=== PATIENT | male | born 1935 | race Caucasian/White ===

== ENCOUNTER 2017-06-06 09:20 | Inpatient (IN) | payer OTHER, MEDICAID ==
[~2017-06-06] VITALS: Ht 177.8 cm; Wt 80.7 kg
[2017-06-06] VITALS (15 sets, daily range): BP systolic 101–126
--- NOTE | 2017-06-06 09:20 | NUR ---
Placed in room 02. Placed on surveillance monitor, blood pressure machine and pulse oximeter. To gown for exam. Side rails up. Report given to FELICITAS Campos.
--- NOTE | 2017-06-06 09:29 | NUR ---
Received Pt in bed 2. Pt was brought in by Pt's neighbor. Pt's neighbor stated Pt's appears fatigue yesterday and thought Pt should come into the ER to get evaluated. Pt denies SOB, pain, blurred vision, or discomfort. Pt able to follow simple commands and verbalized needs. Speech clear. Pt able to recall event that occurred yesterday. Pt breathing even and unlabored. O2 sat 97% room air. Lung sounds auscultated. Lung sounds clear throughout all quadrant. Pt able to move BUE and BLE equally, BUE and BLE muscle strength 5/5, AROM noted. Pt ambulated to bed with steady gait. Addendum: 06/06/17 at 0940 by JIE Pt's neighbor at bedside. Pt's neighbor at bedside providing Hx. Pt neighbor stated Pt appeared ALOC during at [facility]aker in confession. Pt unable to recall event during the time of incident. Pt was noted by friends washing his hands and forgetting to turn off sink faucet. Pt s/s lasted 30 mins.
--- NOTE | 2017-06-06 09:37 | NUR ---
Dr. Chinchilla at the bedside evaluating Pt. Currently awaiting new orders.
[2017-06-06 10:12] LABS: BASOPHILS # (AUTO) 0.1 K/uL (0.0-0.2); EOSINOPHILS # (AUTO) 0.1 K/uL (0.0-0.4); EOSINOPHILS % (AUTO) 0.8 % (0.0-4.0); MEAN CORPUSCULAR HGB CONC 33 % (32-36)
--- NOTE | 2017-06-06 10:15 | NUR ---
Dr. Chinchilla at the bedside discussin plan of care. Currently awaiting new orders.
[2017-06-06 10:18] LABS: BASOPHILS % (AUTO) 1.1 % (0.0-2.0); HEMATOCRIT 37.3 % (36-54); HEMOGLOBIN 12.4 g/dL (14.0-18.0); LYMPHOCYTES # (AUTO) 0.7 K/uL (1.0-5.5); LYMPHOCYTES % (AUTO) 10.5 % (20.5-51.5); MEAN CORPUSCULAR HEMOGLOBIN 29 pg (27-31); MEAN CORPUSCULAR VOLUME 88 fL (79.0-98.0); MONOCYTES # (AUTO) 0.5 K/uL (0.0-1.0); MONOCYTES % (AUTO) 8.6 % (1.7-9.3); NEUTROPHILS # (AUTO) 4.9 K/uL (1.8-7.7); PLATELET COUNT (AUTO) 197 K/uL (130-430); RED BLOOD CELL COUNT(AUTO) 4.22 MIL/uL (4.2-6.2); RED CELL DISTRIBUTION WIDTH 13.3 % (9.0-15.0); WHITE BLOOD COUNT (AUTO) 6.3 K/uL (4.8-10.8)
[2017-06-06 10:30] LABS: ANION GAP 8 (5-15); CALCIUM 8.8 mg/dL (8.4-11.0); CHLORIDE 107 mmol/L (98-107); CREATININE 0.97 mg/dL (0.55-1.30); GLUCOSE 122 mg/dL (70-99); SODIUM SERUM 140 mmol/L (136-145); UREA NITROGEN, BLOOD 21 mg/dL (8-21)
[2017-06-06 10:34] LABS: BILIRUBIN,URINE NEGATIVE (NEGATIVE); BLOOD, URINE NEGATIVE (NEGATIVE); CLARITY/URINE CLEAR (CLEAR); COLOR,URINE YELLOW (YELLOW); GLUCOSE,URINE NEGATIVE (NEGATIVE); KETONES,URINE NEGATIVE (NEGATIVE); LEUKOCYTE ESTERASE ,URINE NEGATIVE (NEGATIVE); NITRITE, URINE NEGATIVE (NEGATIVE); PROTEIN URINE NEGATIVE (NEGATIVE)
[2017-06-06 10:35] LABS: ALANINE AMINOTRANSFERASE 28 U/L (12-78); ALBUMIN 3.5 g/dL (3.4-4.8); ASPARTATE AMINOTRANSFERASE 26 U/L (10-37); TOTAL BILIRUBIN 0.3 mg/dL (0.0-1.0)
[2017-06-06 10:39] LABS: ALCOHOL, BLOOD < 3 mg/dL (<10)
--- NOTE | 2017-06-06 11:40 | NUR ---
Pt transported to ICU bed 4 via rney.
[2017-06-06] MEDS ORDERED: ONDANSETRON HCL 4 MG/2 ML VIAL IVP PRN (11:45)
[2017-06-06] MEDS ORDERED: ACETAMINOPHEN 325 MG TABLET PO PRN (11:45)
[2017-06-06] MEDS ORDERED: DEXAMETHASONE SOD PHOSPHATE 10 MG/ML VIAL IVP ONE (11:45)
[2017-06-06] MEDS ORDERED: levETIRAcetam 500 MG in NS 100 ML IV ONE (11:45)
[2017-06-06] MEDS: D5LR 1,000 ML IV SCH (11:45)
--- NOTE | 2017-06-06 11:45 | NUR ---
RN NOTES: ER ADMISSION ADMITTED FROM ER FOR ALOC, PATIENT IS AWAKE AND ALERT, NOT IN ACUTE DISTRESS, SINUS RHYTHM ON THE MONITOR, SPO2 99% ON ROOM AIR. DENIES ANY FORM OF DISCOMFORT. ABLE TO MOVE ALL EXTREMS WITHOUT DIFFICULTY. PATIENT KEPT COMFORTABLE.
--- NOTE | 2017-06-06 11:50 | NUR ---
Placed Pt in ICU bed 4. Bedside report given to Sophie POLK.
--- NOTE | 2017-06-06 11:50 | NUR ---
MD ROUNDS: DR. AMARJIT OCASIO HERE TO SEE PATIENT, WITH ORDERS CARRIED OUT. SPOKE TO PATIENT RE: PLAN OF CARE.
--- NOTE | 2017-06-06 11:50 | NUR ---
Called Dr. Serrato with a consult, spoke with Rose from doctors office
[2017-06-06] MEDS ORDERED: LORazepam 2 MG/ML VIAL IVP PRN (12:00)
--- NOTE | 2017-06-06 12:15 | NUR ---
Called Dr. Saldaña with a consult, spoke with Shelby from the exchange
--- NOTE | 2017-06-06 13:08 | NUR ---
Care is assumed. A/Ox4. No neuro deficits noted at this time. SR on monitor, 60s-70s bpm. Cranial nerves checked. On room air, lung sounds clear bilat, abdominal sounds are audible on all quadrants. Bilat extremities are equal in strength. Patient is ambulatory. Pedal and radial pulses are detected. Call light in place, bed locked at the lowest position, instructed patient to use call light for needs. Will continue to monitor.
--- NOTE | 2017-06-06 15:25 | NUR ---
Patient's friends are at bedside. Current POC and patient's current situation is explained; they verbalized understanding.
--- NOTE | 2017-06-06 17:25 | NUR ---
patient to potty for urination. Patient tolerated without distress.
[2017-06-06] MEDS: DEXAMETHASONE SOD PHOSPHATE 4 MG/ML VIAL IVP SCH ×2 (17:56→23:14)
--- NOTE | 2017-06-06 18:35 | NUR ---
Patient completes dinner without distress. All needs met, will delegate to next shift.
--- NOTE | 2017-06-06 19:15 | NUR ---
Initial Notes Received patient resting in bed, awake, alert, oriented. Patient denies any acute distress or pain at this time. Vital signs stable. Breathing is even and unlabored on room air. IV site patent/clean/dry. Needs addressed. Educated patient on use of call light for assistance and fall precautions, patient verbalized understanding. Call light in hand, fall precautions in place. Will continue to monitor for changes and safety.
[2017-06-06] MEDS: levETIRAcetam 500 MG in NS 100 ML IV SCH (20:33)
--- NOTE | 2017-06-06 21:30 | NUR ---
Rounds Dr. Serrato on unit to see patient.
--- NOTE | 2017-06-06 21:45 | NUR ---
Visitors Patient receiving visitors. Patient denies any acute distress or pain at this time. Breathing is even and unlabored. IV site patent/clean/dry.
[2017-06-07] VITALS (20 sets, daily range): BP systolic 98–132
[2017-06-07 01:13] LABS: BILIRUBIN,URINE NEGATIVE (NEGATIVE); BLOOD, URINE TRACE (NEGATIVE); CLARITY/URINE CLEAR (CLEAR); COLOR,URINE YELLOW (YELLOW); GLUCOSE,URINE NEGATIVE (NEGATIVE); KETONES,URINE NEGATIVE (NEGATIVE); LEUKOCYTE ESTERASE ,URINE NEGATIVE (NEGATIVE); NITRITE, URINE NEGATIVE (NEGATIVE); PH,URINE 7.5 (5.0-8.0); PROTEIN URINE NEGATIVE (NEGATIVE); UROBILINOGEN,URINE 0.2 (0.2-1.0)
[2017-06-07 01:15] LABS: BACTERIA,URINE RARE /HPF (None Seen); MUCUS,URINE None Seen /LPF (None Seen); RBC,URINE 0-3 /HPF (0-3); WBC,URINE 0-3 /HPF (0-3)
--- NOTE | 2017-06-07 02:17 | NUR ---
Hygiene care and CHG bath Hygiene care provided with CHG bath.
--- NOTE | 2017-06-07 04:00 | NUR ---
Rounds Patient resting in bed with eyes closed, easily aroused. Patient denies any acute distress or pain at this time. Breathing is even and unlabored. IV site patent/clean/dry. CHG bath given. Needs addressed. Call light in hand, will continue to monitor.
[2017-06-07] MEDS: DEXAMETHASONE SOD PHOSPHATE 4 MG/ML VIAL IVP SCH ×3 (05:19→18:13)
[2017-06-07 06:28] LABS: BASOPHILS % (AUTO) 0.1 % (0.0-2.0); HEMOGLOBIN 13.9 g/dL (14.0-18.0); LYMPHOCYTES # (AUTO) 0.4 K/uL (1.0-5.5); LYMPHOCYTES % (AUTO) 7.4 % (20.5-51.5); MEAN CORPUSCULAR HEMOGLOBIN 30 pg (27-31); MEAN CORPUSCULAR HGB CONC 33 % (32-36); MEAN CORPUSCULAR VOLUME 90 fL (79.0-98.0); MONOCYTES # (AUTO) 0.1 K/uL (0.0-1.0); MONOCYTES % (AUTO) 1.3 % (1.7-9.3); NEUTROPHILS # (AUTO) 5.1 K/uL (1.8-7.7); NEUTROPHILS % (AUTO) 91.2 % (40.0-70.0); PLATELET COUNT (AUTO) 193 K/uL (130-430); RED BLOOD CELL COUNT(AUTO) 4.67 MIL/uL (4.2-6.2)
--- NOTE | 2017-06-07 06:47 | NUR ---
Closing Notes Patient resting in bed with eyes closed, easily aroused, no change in mentation. Patient denies any acute distress or pain at this time. Breathing is even and unlabored. IV site patent/clean/dry, no S/S infection/infiltration noted. Needs addressed throughout shift. Call light in hand, fall precautions in place. Will continue to monitor for changes and safety, and endorse all patient care/needs to oncoming nurse.
[2017-06-07 06:53] LABS: ALANINE AMINOTRANSFERASE 36 U/L (12-78); ALBUMIN 3.4 g/dL (3.4-4.8); ANION GAP 7 (5-15); ASPARTATE AMINOTRANSFERASE 26 U/L (10-37); CALCIUM 8.9 mg/dL (8.4-11.0); CHLORIDE 105 mmol/L (98-107); CHOLESTEROL 210 mg/dL (<200); CREATININE 0.95 mg/dL (0.55-1.30); GLUCOSE 149 mg/dL (70-99); HDL CHOLESTEROL 50 mg/dL (>45); LDL CHOLESTEROL 155 mg/dL (<100); POTASSIUM 3.8 mmol/L (3.5-5.1); SODIUM SERUM 141 mmol/L (136-145); TOTAL BILIRUBIN 0.4 mg/dL (0.0-1.0); TRIGLYCERIDES 31 mg/dL (30-150); UREA NITROGEN, BLOOD 16 mg/dL (8-21)
[2017-06-07 06:56] LABS: WHITE BLOOD COUNT (AUTO) 5.6 K/uL (4.8-10.8)
--- NOTE | 2017-06-07 07:30 | NUR ---
AM Assessment Received Pt awake, alert, orientated x1 to self. Pt has episode of forgetfulness and confusion. Reorientated Pt to place, time, and situation. Informed Pt to recall three items (apple, ball, & car). Pt unable to recall three items after 5 mins. Speech clear. No facial drooping noted. Pt able to move BUE and BLE equally, BUE & BLE muscle strength 5/5. Pt breathing even and unlabored. Lung sounds auscultated, lung sounds clear throughout all quadrant. Abd. auscultated. Bowel sounds noted throughout all quadrant. Abd soft and non distended. IV access noted right FA 20G patent with blood return. No s/s of infiltration or inflammation noted. Seizure precaution in place. Bilateral upper side rails up and padded. Assess done, plan of care discussed with Pt, call light within easy reach, bed at lowest position, will continue to monitor.
[2017-06-07 07:31] LABS: FREE T4 (FREE THYROXINE) 0.8 ng/dL (0.6-1.6)
[2017-06-07 08:30] LABS: ERYTHROCYTE SEDIMENTATION RATE 7 MM/HR (0-15)
--- NOTE | 2017-06-07 09:00 | NUR ---
Pt transported to MRI via wheelchair.
[2017-06-07] MEDS ORDERED: GADOPENTETATE DIMEGLUMINE 15 ML VIAL IV ONE (09:10)
--- NOTE | 2017-06-07 10:00 | NUR ---
Pt returned from MRI via wheelchair. Pt tolerated procedure. Pt is awake, alert, orientated to self. Pt unable to recall three items after 5 mins. Reorientated Pt to the three items. Pt continues to experience episode of forgetfulness. Speech clear. No facial drooping. Informed Pt to push the call light if Pt needs assistance with anything. Pt verbalized understanding. Call light within easy reach, bed at lowest position, will continue to monitor.
[2017-06-07 10:09] LABS: % FREE PSA 25.5 % (.); CEA 2.6 ng/mL (0.0-4.7); FREE PSA 0.28 ng/mL; PROSTATE SPECIFIC AG TOTAL 1.1 ng/mL (0.0-4.0)
[2017-06-07] MEDS: levETIRAcetam 500 MG in NS 100 ML IV SCH ×2 (10:34→21:42)
[2017-06-07] MEDS: D5LR 1,000 ML IV SCH (10:35)
--- NOTE | 2017-06-07 12:00 | NUR ---
Pt awake and eating lunch. Pt tolerating meals. Pt is awake, alert, orientated x1 to self. Pt has episode of forgetfulness. Pt unable to recall 3 items (apple, ball, & car) after 5 mins. Reorientated Pt to place, time, situation, and three items. Pt's speech is clear. Pt able to move BUE and BLE equally. Pt stated he did not need anything at the moment. Informed Pt to push the call light if Pt needs assistance with anything. Pt verbalized understanding. Call light within easy reach, bed at lowest position, upper side rails up and padded, will continue to monitor.
--- NOTE | 2017-06-07 14:00 | NUR ---
Dr. Yeung at the bedside discussing plan of care. Currently awaiting new orders.
--- NOTE | 2017-06-07 16:15 | NUR ---
RECEIVED PT FROM ICU PT PRESENTED WITH A RIGHT FRONTAL INTRACRANIAL HEMORRHAGE - DR. HUTCHISON ASSESSED PT AND DETERMINED SURGERY WAS NOT NEEDED. PT IS STABLE ON ROOM AIR WITH NO COMPLAINT OF DISCOMFORT. HE IS A/O X 4 BUT IS EASILY CONFUSED AND NEEDS TO BE FREQUENTLY REORIENTED. BREATHING UNLABORED. IV IS PATENT, DRESSING DRY AND INTACT. PT IS A FALL RISK.
--- NOTE | 2017-06-07 16:19 | NUR ---
Pt transferred to [facility]. Bedside report given to [facility] RN. Informed Pt to push the call light if Pt needs assistance with anything Pt verbalized understanding. Call light within easy reach, bed at lowest position, will continue to monitor.
--- NOTE | 2017-06-07 18:43 | NUR ---
RN CLOSING NOTE PT IS SITTING UP IN BED WITH NO COMPLAINT OF DISCOMFORT. NEURO CHECK PERFORMED, PT A.O X 4 BUT IS EASILY CONFUSED: REORIENTATION TO PLACE AND TIME SUCCESSFUL. HIS IV IS PATENT, DRESSING DRY AND INTACT. FALL AND SEIZURE PRECAUTIONS ARE IN PLACE AND HE IS LOCATED IN A ROOM CLOSE TO THE NURSING STATION.
--- NOTE | 2017-06-07 19:05 | NUR ---
Initial Notes Received patient resting with eyes close in bed. Patient is awake alert oriented x1, non verbal. No s/s of any distress noted. Patient is on trach with T bar noted on 100% o2 sat. G tube noted no residual and flushing well. Patient on bed rest. Call light in reach, will cont to monitor. Addendum: 06/07/17 at 1957 by Manav Alamo RN CORRECTION: DISREGARD NOTES WRONG PATIENT
--- NOTE | 2017-06-07 19:05 | NUR ---
Initial Notes Received patient resting in bed. Patient is awake alert oriented x4. No s/s of any distress noted. All extremities are strong needs assistance to bedside commode. Call light in reach, will cont to monitor.
--- NOTE | 2017-06-07 21:05 | NUR ---
Rounds Patient is awake watching tv at this time. No s/s of any distress noted. Call light in reach, will cont to monitor.
--- NOTE | 2017-06-07 23:05 | NUR ---
Rounds Assisted patient to b/r and safely back to bed . No s/s of any distress noted. Call light in reach, will cont to monitor.
[2017-06-08] MEDS: DEXAMETHASONE SOD PHOSPHATE 4 MG/ML VIAL IVP SCH ×2 (00:09→05:58)
--- NOTE | 2017-06-08 01:05 | NUR ---
Rounds Patient is resting at this time. No s/s of any distress noted. Call light in reach, will cont to monitor.
--- NOTE | 2017-06-08 03:10 | NUR ---
ROUNDS PT IN BED WITH EYES OPEN. DENIES ANY NEEDS AT THIS TIME. FALL PRECAUTIONS IN PLACE. CALL LIGHT WITHIN REACH. CONTINUE TO MONITOR.
[2017-06-08 03:37] VITALS: BP_SYST 124
--- NOTE | 2017-06-08 05:09 | NUR ---
rounds pt in bed sleeping comfortably. safety precautions in place. Call light within reach. Will continue to monitor
--- NOTE | 2017-06-08 06:48 | NUR ---
closing note pt slept on and off this shift. Pt was at times confused in the middle of the night. Pt ambulated to the bathroom. pt tolerated all treatments well. bed rail padded, pt tolerated treatments without any adverse effect. Safety measures upheld. Bed at lowest posiiton. Will pas report to the next shift.
[2017-06-08 08:00] VITALS: BP_SYST 131
--- NOTE | 2017-06-08 08:00 | NUR ---
INITIAL NOTE PT LAYING IN BED, EASY TO AROUSE, ALERT AND ORIENTED X1, CONFUSED, ABLE TO MAKE NEEDS KNOWN, NO S/S OF ACUTE DISTRESS OR PAIN, VSS, IV FLUIDS INFUSING TO RFA AT ORDERED RATE, NO S/S OF INFILTRATION NOTED, SCDS IN PLACE, PLAN OF CARE DISCUSSED, PT VERBALIZED UNDERSTANDING, PT REORIENTED TO ROOM, USE OF CALL LIGHT AND BED ALARM, CALL LIGHT PLACED WITHIN REACH, BED IN LOW POSITION AND LOCKED, SAFETY MEASURES IN PLACE, WILL MONITOR PT CLOSELY
--- NOTE | 2017-06-08 09:10 | NUR ---
Nutrition Update Jamal Scale 18 noted. Pt admitted for intracranial hemorrhage. Diet: mechanical soft BMI: 25.5 kg/m2 RD to follow per nutrition care standards.
--- NOTE | 2017-06-08 09:40 | NUR ---
DR OCASIO MAKING ROUNDS, UPDATED ON PT STATUS, CONSULT TO DR HDEZ CALLED AGAIN , AWAITING MD TO SEE PATIENT, DC PLANNING STARTED FOR SNF PLACEMENT
[2017-06-08] MEDS: levETIRAcetam 500 MG in NS 100 ML IV SCH ×2 (09:43→22:20)
--- NOTE | 2017-06-08 11:07 | NUR ---
MADE A F/U CALL TO THE NEUROLOGY CONSULT, DR SELBY, RE: NISHI. HAS NOT SEEN PT YET. SPOKE TO BARBARA
[2017-06-08] MEDS: PANTOPRAZOLE GRANULES PACKET 40 MG GT SCH (11:15)
--- NOTE | 2017-06-08 11:36 | NUR ---
DC PLANNING: SPOKE W/ DR. OCASIO REGARDING THE D CPLAN FOR THE PT. PT LIVES ALONE, NEEDS PT BEFORE GOING BACK TO HIS HOUSE. RECOMMENDED [facility] . CALLED AND FAXED TO [facility] ([facility]) TEL# [phone]; FAX# [phone]. TO F/U. Addendum: 06/08/17 at 1231 by Jodie Lucas RN [facility] FROM [facility] CALLED ACCEPTING THE PT , GAVE ROOM 35 A, POSSIBLE DISCHARGE TOMORROW. PLS GIVE REPORT TO FELICITAS TEL# [phone].
[2017-06-08] MEDS: D5LR 1,000 ML IV SCH (11:45)
[2017-06-08 12:00] VITALS: BP_SYST 109
[2017-06-08] MEDS ORDERED: PANTOPRAZOLE SODIUM 40 MG TAB PO ONE (12:00)
--- NOTE | 2017-06-08 12:00 | NUR ---
ROUNDS PT SITTING UP IN BED, FRIENDS AT BEDSIDE, PT ALERT, IN [employer], CONFUSED, PT STATES HE IS IN HIS HOUSE, IN HIS LIVING ROOM, PT REMINDED THAT HE IS IN HOSPITAL, [facility]ALLY [facility], PT WILL VERBALIZE UNDERSTANDING THEM STATE HIS BEDROOM IS ON THE OTHER SIDE OF THIS WALL, SAFETY MEASURES IN PLACE, CALL LIGHT WITH IN REACH, BED ALARM ON, WILL CONTINUE TO MONITOR PT CLOSELY
[2017-06-08] MEDS: DEXAMETHASONE 1 MG TABLET (DECADRON) PO SCH ×3 (12:07→22:20)
[2017-06-08 12:08] LABS: FOLATE (FOLIC ACID) 12.6 ng/mL (>3.0)
--- NOTE | 2017-06-08 14:00 | NUR ---
DR RODRIGUEZ CAME FOR NEURO CONSULT, PT ASSESSED, NO NEW ORDER RECEIVED, WILL CONTINUE TO MONITOR PATIENT CLOSELY
--- NOTE | 2017-06-08 16:00 | NUR ---
ROUNDS PT SITTING UP IN BED, FRIENDS AT BEDSIDE, PT ABLE TO TALK ABOUT PAST AND WORK, BUT UNABLE TO ORIENT WHERE HE IS AT AND WHAT TIME IT IS, PT DENIES ANY NEEDS AT THIS TIME, SAFETY MEASURES IN PLACE, CALL LIGHT WITHIN REACH, WILL CONTINUE TO MONITOR
[2017-06-08 16:12] VITALS: BP_SYST 121
--- NOTE | 2017-06-08 17:30 | NUR ---
ROUNDS MED PASS AND IV FLUID CHANGED, PT SITTING UP IN BED, CONFUSED, DENIES ANY NEEDS AT THIS TIME, SAFETY MEASURES IN PLACE, CALL LIGHT WITHIN REACH, WILL CONTINUE TO MONITOR
--- NOTE | 2017-06-08 18:54 | NUR ---
CLOSING NOTE PATIENT LAYING IN BED, AWAKE, ALERT, CONFUSED, NO S/S OF ACUTE DISTRESS OR PAIN, IV FLUIDS INFUSING TO RFA AT ORDERED RATE, SITE PATENT AND INTACT, ALL NEEDS ATTENDED TO THROUGHOUT SHIFT, SAFETY MEASURES MAINTAINED, CALL LIGHT WITHIN REACH, BED ALARM ON, WILL GIVE REPORT TO FOLLOWING SHIFT
--- NOTE | 2017-06-08 19:20 | NUR ---
OPENING NOTES RECEIVED REPORT AT BEDSIDE FROM DAYSHIFT NURSE. PATIENT IS AWAKE AND ALERT, BUT CONFUSED. RESPIRATIONS EVEN AND UNLABORED. IV PATENT AND INFUSING WITH NO SIGNS OF INFILTRATION PRESENT. NO S/S OF ACUTE DISTRESS NOTED. BED IN LOWEST POSITION, BED ALARM ON, CALL LIGHT WITHIN REACH.
[2017-06-08 20:26] VITALS: BP_SYST 112
--- NOTE | 2017-06-08 22:26 | NUR ---
MEDS Routine meds given as ordered, tolerated well; call light in reach, bed in low position, denies any pain at this time.
--- NOTE | 2017-06-09 00:27 | NUR ---
round in bed sleeping at this time, with no distress; call light w/in reach, bed in low position, bed alarm on.
[2017-06-09 01:45] VITALS: BP_SYST 116
--- NOTE | 2017-06-09 02:08 | NUR ---
Round. Sleeping in bed at this time,with no distress; iv fluid infusing via Rt arm/ patent; call light in reach,bed in low position,bed alarm on.
[2017-06-09 03:49] VITALS: BP_SYST 118
--- NOTE | 2017-06-09 04:20 | NUR ---
Round. In bed sleeping at this time, no distress noted;call light in reach,bed in low position, bed alarm on.
--- NOTE | 2017-06-09 07:00 | NUR ---
Closing notes. Condition stable, slept all night,tolerated Meds well;tried to get out of bed without assist;now,resting in bed with no distress, call light in reach,bed in low position,bed alarm on;endorsed to morning nurse to continue care.
--- NOTE | 2017-06-09 08:02 | NUR ---
INITIAL NOTE PATIENT IS AWAKE, ALERT, ABLE TO FOLLOW DIRECTIONS AND HAVE CONVERSATION BUT CONFUSED, SITTING UP HAVING BREAKFAST, NO S/S OF ACUTE DISTRESS OR COMPLAINT OF PAIN, VSS, IV FLUIDS INFUSING TO RFA AT ORDERED RATE, NO S/S OF INFILTRATION NOTED, SAFETY MEASURES IN PLACE, CALL LIGHT WITHIN REACH, WILL FOLLOW UP
[2017-06-09 08:11] VITALS: BP_SYST 122
[2017-06-09] MEDS: PANTOPRAZOLE GRANULES PACKET 40 MG GT SCH (08:35)
[2017-06-09] MEDS: DEXAMETHASONE 1 MG TABLET (DECADRON) PO SCH (08:36)
[2017-06-09] MEDS: levETIRAcetam 500 MG in NS 100 ML IV SCH (08:36)
--- NOTE | 2017-06-09 10:07 | NUR ---
ROUNDS PT SITTING UP IN BED, FRIEND AT BEDSIDE, STABLE, NO S/S OF ACUTE DISTRESS OR PAIN, PT DENIES ANY NEEDS AT THIS TIME, SAFETY MEASURES IN PLACE, CALL LIGHT WITHIN REACH, WILL CONTINUE TO MONITOR PT
--- NOTE | 2017-06-09 10:15 | NUR ---
ROXANE DC PLANNING: TRANSFER TO [facility] SNF SPOKE WITH DR. OCASIO THIS A.M. TO SPEAK WITH OTHER PRIESTS AT [facility] ABOUT WHETHER THERE WOULD BE ANYONE AVAILABLE AT [facility] FOR OVERSIGHT OF Pt OVER THE NEXT 7-10 DAYS DUE TO RECENT DOCUMENTED ICH WITHOUT SURGERY INDICATED PER DR. HUTCHISON; BUT, Pt IS ON NEW MEDS, DECADRON FOR BRAIN EDEMA AND IV KEPPRA 500 MG Q 12 HOURS FOR SEIZURE COVERAGE ORDERED THRU 08/07/[address] OCASIO AT THIS TIME. DECADRON 2 MG WAS WEANED TODAY FROM 4 TIMES DAILY TO 3 TIMES DAILY. FATHER NICOLETTE GREENWOOD STATED THERE ARE NOT ENOUGH STAFF AT FACILITY TO OVERSEE NEW RECOVERY FROM ICH; AND, TRANSFER TO SNF WAS PREFERRED FOR Pt SAFETY; AND, FOR Pt TO TRANSFER VIA AMBULANCE TO SNF FACILITY. ROXANE FAXED INQUIRIES TO [facility] AND [facility] FOR BED REQUEST THESE FACILITIES ARE CLOSER TO [facility]IDENCE OF Pt. NO RESPONSE BACK FROM [facility]; BUT, CM OBTAINED ACCEPTANCE AND BED # 303-A FOR Pt TO ADMIT TO [facility]. BLS AMBULANCE TRANSPORT ARRANGED PER [facility] FOR 1800 PICK-UP AFTER Pt HAS DINNER AT HOSPITAL. PACKET PREPARED AND PROVIDED TO NURSING STATION. RN/ELIUD UPDATED RE: DC POC. ROXANE ALSO SPOKE WITH Pt's SISTER/JAEL GAFFNEY: IN [place] WHO WAS A PRIOR CLASSIFIER; AND, WAS REQUESTING INFO ABOUT NEW MEDICATIONS RECOMMENDED FOR Pt. ROXANE ALSO NOTIFIED SISTER/JAEL GAFFNEY THAT Pt WILL BE TRANSFERRED TO [facility] SNF VERY NEAR TO [facility]; WENT BY AMBULANCE; AND, PROVIDED HER WITH CONTACT # FOR [facility]: [phone]; FAX: [phone].
--- NOTE | 2017-06-09 11:00 | NUR ---
DR OCASIO SPOKE WITH PATIENTS ROOMMATES FOR DISCHARGE PLANNING, CAME TO AGREEMENT FOR PATIENT TO TRANSFER TO SNF FOR PHYSICAL THERAPY AND CONTINUED MEDICAL TREATMENT, CASE MANAGEMENT MADE AWARE, PER CASE MANAGEMENT PHONG SHE WILL ATTEMPT TO ARRANGE ALTERNATE SNF PLACEMENT AND FOLLOW UP WITH RN REGARDING PLACEMENT AND TRANSPORTATION
[2017-06-09] MEDS: D5LR 1,000 ML IV SCH (11:45)
--- NOTE | 2017-06-09 13:00 | NUR ---
ROUNDS PT RESTING IN BED, FRIEND AT BEDSIDE, PT DENIES ANY NEEDS AT THIS TIME, SAFETY MEASURES IN PLACE, CALL LIGHT WITHIN REACH, WILL FOLLOW UP
[2017-06-09 13:11] VITALS: BP_SYST 107
[2017-06-09] MEDS ORDERED: DEXAMETHASONE 1 MG TABLET (DECADRON) PO SCH (15:00)
--- NOTE | 2017-06-09 15:01 | NUR ---
ROUNDS PT ASSISTED TO RESTROOM, STEADY GAIT NOTED, WHEN RETURNING TO BED, PT HAS TO BE REORIENTED REGARDING WHERE HE IS, ROOM, BED, PT RETURNED TO BED, BED ALARM ON, IV FLUIDS INFUSING, WILL CONTINUE TO MONITOR
--- NOTE | 2017-06-09 17:00 | NUR ---
PHONG FROM CASE MANAGEMENT MADE ARRANGEMENT FOR TRANSFER TO [facility], PER PHONG DAUGHTER NICOLE MADE AWARE, WILL CONTINUE WITH DISCHARGE
[2017-06-09 17:08] VITALS: BP_SYST 115
[2017-06-09 17:21] VITALS: BP_SYST 115
--- NOTE | 2017-06-09 17:40 | NUR ---
REPORT GIVEN TO JUSTYNA AT [facility] [phone], PATIENT WILL GO TO ROOM 303A, NURSE REQUESTED FAX OF MEDICATION LIST, SENT, CALL BACK NUMBER GIVEN, WILL CONTINUE WITH DISCHARGE
--- NOTE | 2017-06-09 18:47 | NUR ---
PT TRANSFERRED Report given to JUSTYNA at [facility] [phone]. Transfer packet with Transfer Orders and Medication Reconciliation form given to EMT with report. Exitcare provided. [facility] ID band removed, replaced with ID band with pt's name and . IV SITE MAINTAINED AND SECURED DUE TO CONTINUATION OF IV MEDICATIONS. All belongings sent with patient. Patient left floor via gurney escorted by EMT in no distress. BERNIE TRIANA, PERSON TO NOTIFY IN PAPERWORK MADE AWARE OF DISCHARGE
[2017-06-10] MEDS ORDERED: PANTOPRAZOLE GRANULES PACKET 40 MG PO SCH (09:00)
== END 2017-06-09 18:50 | DRG 64 ==
LOC: SED 09:20 → SIC 11:18 → STU 06-07 16:25 → SMU 06-09 18:00
PROVIDERS: ADMIT Internal Medicine; ATTEND Internal Medicine
DX: I61.1 Nontraumatic intracerebral hemorrhage in hemisphere, cortical (principal); G93.49 Other encephalopathy; Z80.0 Family history of malignant neoplasm of digestive organs; Z85.828 Personal history of other malignant neoplasm of skin
CPT/HCPCS: 36415; 70450-TC; 70553; 71010; 80053; 80061; 81000-TC; 81003; 82140-TC; 82378; 82607; 82746; 83036; 84153; 84439; 84484; 85025; 85651-TC; 86301; 87081; 93005; 93306; 93880; 99291; A9579; G0482; J1100; J1953; J7120

== ENCOUNTER 2017-07-01 12:05 | Emergency (ER) | payer OTHER, MEDICAID ==
[~2017-07-01] VITALS: Ht 185.4 cm; Wt 73.5 kg
[2017-07-01 12:13] VITALS: BP_SYST 126
--- NOTE | 2017-07-01 12:20 | NUR ---
Patient to ER bed 4 to gown for evaluation. Side rails up. Report given to Yung POLK.
--- NOTE | 2017-07-01 12:20 | NUR ---
Pt complains of abdominal distention. Noted firmness upon palpitation, pt denies tenderness. Pt states "has not had a bowel movement for a while, dribbled urine on Saturday and nothing since." POA at bedside states pt has been feeling bloated for a week. Pt denies fever or n/v. Pt was wheeled into ER by POA. No other injuries/complaints per pt or noted.
--- NOTE | 2017-07-01 12:21 | NUR ---
ER Dr. Chinchilla at bedside examining patient.
--- NOTE | 2017-07-01 12:35 | NUR ---
# 16 FR Corcoran catheter with use of sterile technique. Immediate return of 2225 cc clear yellow urine noted. Bedside drainage bag placed below level of bladder. Urine sample collected and sent to lab. Pt tolerated procedure well. Patient unable to toilet self.
--- NOTE | 2017-07-01 13:30 | NUR ---
Pt is resting comfortably in bed with no noted distress or discomfort.
[2017-07-01 13:51] LABS: BILIRUBIN,URINE NEGATIVE (NEGATIVE); BLOOD, URINE 2+ (NEGATIVE); CLARITY/URINE CLEAR (CLEAR); COLOR,URINE YELLOW (YELLOW); GLUCOSE,URINE NEGATIVE (NEGATIVE); KETONES,URINE NEGATIVE (NEGATIVE); LEUKOCYTE ESTERASE ,URINE NEGATIVE (NEGATIVE); NITRITE, URINE NEGATIVE (NEGATIVE); PH,URINE 5.5 (5.0-8.0); PROTEIN URINE NEGATIVE (NEGATIVE); UROBILINOGEN,URINE 0.2 (0.2-1.0)
--- NOTE | 2017-07-01 13:56 | NUR ---
Emptied myers bag, output is 2250 mL, urine has blanco tinge.
[2017-07-01 14:01] LABS: BACTERIA,URINE FEW /HPF (None Seen); MUCUS,URINE None Seen /LPF (None Seen); WBC,URINE 0-3 /HPF (0-3)
--- NOTE | 2017-07-01 14:15 | NUR ---
Social Service Note: ROSALIND was called to ED; AEROSOL SUPERVISOR met with pt's DPOA at bedside. Pt's DPOA has concerns about the care that pt is receiving at [facility] . ROSALIND spoke with pt's DPOA about calling the [facility]; ROSALIND provided pt's DPOA with contact information for the [facility] ([phone]). ROSALIND also provided pt's DPOA with a list of local intermediate facilities where pt's DPOA could look for alternative placement. ROSALIND will remain available for support and will follow up as needed. Addendum: 07/01/17 at 1606 by Brandy Zaman LCSW ROSALIND has contacted the [facility] ([phone]) ROSALIND has completed an [id number] form and faxed it to the [facility] ([phone]) for review regarding pt's care at [facility].
[2017-07-01 14:34] VITALS: BP_SYST 130
--- NOTE | 2017-07-01 14:34 | NUR ---
Patient given written and verbal discharge instructions and verbalizes understanding. ER MD discussed with patient the results and treatment provided. Patient in stable condition. ID arm band removed. Rx of Cipro and Flomax given. Patient educated on pain management and to follow up with PMD. Pain Scale 0. Opportunity for questions provided and answered.
== END 2017-07-01 14:34 | disposition home or self-care (01) ==
LOC: SED 12:05
DX: R33.9 Retention of urine, unspecified (principal); R10.30 Lower abdominal pain, unspecified; Z86.73 Personal history of transient ischemic attack (TIA), and cerebral infarction without residual deficits
CPT/HCPCS: 81000-TC; 99285

== ENCOUNTER 2018-07-18 19:12 | Inpatient (IN) | payer OTHER, MEDICAID ==
[~2018-07-18] VITALS: Ht 185.4 cm; Wt 94.8 kg
[~2018-07-18 19:12] MED LIST: ACET-2165 PO; ACET325T53 PO; CIPR-172 PO; DOCU250C14 PO; DONE10TA44 PO; LEVE500T9; LEVE500T9 PO; MEMA10TA PO; MEMA10TA21 PO; PRO40 PO; QUET25TA34 PO; SER100 PO; SER25 PO; TAMS-11 PO; TRAZ-126 PO; TRIA15CR4 TP
[2018-07-18 19:27] VITALS: BP_SYST 104
[2018-07-18] MEDS ORDERED: NACL 0.9% 1,000 ML IV ONE (20:00)
[2018-07-18 20:29] LABS: BILIRUBIN,URINE NEGATIVE (NEGATIVE); CLARITY/URINE CLEAR (CLEAR); COLOR,URINE YELLOW (YELLOW); GLUCOSE,URINE NEGATIVE (NEGATIVE); KETONES,URINE NEGATIVE (NEGATIVE); LEUKOCYTE ESTERASE ,URINE 2+ (NEGATIVE); NITRITE, URINE NEGATIVE (NEGATIVE); PH,URINE 7.5 (5.0-8.0); PROTEIN URINE TRACE (NEGATIVE)
[2018-07-18 20:31] LABS: BLOOD, URINE TRACE (NEGATIVE)
[2018-07-18 20:35] LABS: BASOPHILS % (AUTO) 0.4 % (0.0-2.0); EOSINOPHILS % (AUTO) 0.3 % (0.0-4.0); HEMATOCRIT 37.3 % (36-54); HEMOGLOBIN 12.6 g/dL (14.0-18.0); LYMPHOCYTES # (AUTO) 0.8 K/uL (1.0-5.5); LYMPHOCYTES % (AUTO) 6.8 % (20.5-51.5); MEAN CORPUSCULAR HEMOGLOBIN 31 pg (27-31); MEAN CORPUSCULAR HGB CONC 34 % (32-36); MEAN CORPUSCULAR VOLUME 90 fL (79.0-98.0); MONOCYTES # (AUTO) 1.5 K/uL (0.0-1.0); MONOCYTES % (AUTO) 12.8 % (1.7-9.3); NEUTROPHILS # (AUTO) 9.8 K/uL (1.8-7.7); NEUTROPHILS % (AUTO) 79.7 % (40.0-70.0); RED BLOOD CELL COUNT(AUTO) 4.15 MIL/uL (4.2-6.2); RED CELL DISTRIBUTION WIDTH 13.6 % (9.0-15.0); WHITE BLOOD COUNT (AUTO) 12.1 K/uL (4.8-10.8)
[2018-07-18 20:36] LABS: BACTERIA,URINE FEW /HPF (None Seen); WBC,URINE 50-80 /HPF (0-3)
[2018-07-18 20:38] LABS: PLATELET COUNT (AUTO) 197 K/uL (130-430)
[2018-07-18 20:43] LABS: ANION GAP 8 (5-15); CALCIUM 9.1 mg/dL (8.4-11.0); CHLORIDE 103 mmol/L (98-107); CREATININE 1.04 mg/dL (0.55-1.30); GLUCOSE 102 mg/dL (70-99); POTASSIUM 4.1 mmol/L (3.5-5.1); SODIUM SERUM 138 mmol/L (136-145); UREA NITROGEN, BLOOD 22 mg/dL (8-21)
[2018-07-18] MEDS ORDERED: PIPERACILLIN/TAZO 3.375 GM in NS 50 ML IV ONE (20:45)
[2018-07-18 20:47] LABS: INR 1.1 (0.80-1.20); PROTHROMBIN TIME 11.4 SECS (9.5-12.5)
[2018-07-18 20:48] LABS: ALANINE AMINOTRANSFERASE 67 U/L (12-78); ALBUMIN 3.5 g/dL (3.4-4.8); ASPARTATE AMINOTRANSFERASE 59 U/L (10-37); TOTAL BILIRUBIN 0.6 mg/dL (0.0-1.0)
[2018-07-18] MEDS ORDERED: LEVOFLOXACIN 500 MG/D5W 100 ML IV ONE (21:00)
[2018-07-18] MEDS ORDERED: PIPERACILLIN/TAZOBACTAM 3.375 GM/VIAL (ZOSYN) IV ONE ×2 (21:05)
[2018-07-18] MEDS ORDERED: LEVO250T2 PO (21:16)
[2018-07-18] MEDS ORDERED: LevALBUTEROL HCL 1.25 MG/0.5 ML *CONC.* VIAL.NEB (XOPENEX CONC.) INH PRN (22:30)
[2018-07-18 22:37] VITALS: BP_SYST 144
[2018-07-18 23:00] VITALS: BP_SYST 128
[2018-07-18] MEDS ORDERED: cefTRIAXone 1 GM VIAL ONE (23:07)
[2018-07-18] MEDS: KCL 20 mEq in D5NS 1000 mL 1,000 ML IV SCH (23:10)
[2018-07-18] MEDS: cefTRIAXone 1 GM in D5W 50 ML IV SCH (23:12)
[2018-07-19] MEDS ORDERED: QUEtiapine FUMARATE 25 MG TABLET PO SCH ×2 (00:30→09:00)
[2018-07-19 00:39] VITALS: BP_SYST 128
[2018-07-19] MEDS: PANTOPRAZOLE SODIUM 40 MG TAB PO SCH (06:28)
[2018-07-19] MEDS: LevALBUTEROL HCL 1.25 MG/0.5 ML *CONC.* VIAL.NEB (XOPENEX CONC.) INH SCH ×3 (07:00→22:32)
[2018-07-19 07:21] LABS: BASOPHILS % (AUTO) 0.3 % (0.0-2.0); EOSINOPHILS % (AUTO) 0.4 % (0.0-4.0); HEMATOCRIT 34.5 % (36-54); HEMOGLOBIN 11.9 g/dL (14.0-18.0); LYMPHOCYTES # (AUTO) 0.8 K/uL (1.0-5.5); LYMPHOCYTES % (AUTO) 7.9 % (20.5-51.5); MEAN CORPUSCULAR HEMOGLOBIN 31 pg (27-31); MEAN CORPUSCULAR HGB CONC 35 % (32-36); MEAN CORPUSCULAR VOLUME 89 fL (79.0-98.0); MONOCYTES # (AUTO) 1.2 K/uL (0.0-1.0); MONOCYTES % (AUTO) 11.9 % (1.7-9.3); NEUTROPHILS # (AUTO) 8.1 K/uL (1.8-7.7); NEUTROPHILS % (AUTO) 79.5 % (40.0-70.0); PLATELET COUNT (AUTO) 174 K/uL (130-430); RED BLOOD CELL COUNT(AUTO) 3.87 MIL/uL (4.2-6.2); RED CELL DISTRIBUTION WIDTH 13.5 % (9.0-15.0); WHITE BLOOD COUNT (AUTO) 10.1 K/uL (4.8-10.8)
[2018-07-19 07:23] LABS: ANION GAP 7 (5-15); CALCIUM 8.7 mg/dL (8.4-11.0); CHLORIDE 106 mmol/L (98-107); GLUCOSE 109 mg/dL (70-99); POTASSIUM 3.6 mmol/L (3.5-5.1); SODIUM SERUM 140 mmol/L (136-145); UREA NITROGEN, BLOOD 16 mg/dL (8-21)
[2018-07-19 08:00] VITALS: BP_SYST 101
[2018-07-19] MEDS: DOCUSATE SODIUM 250 MG CAPSULE PO SCH (09:10)
[2018-07-19] MEDS: ENOXAPARIN SODIUM 40 MG/0.4 ML SYRINGE SUBCUT SCH (09:11)
[2018-07-19 11:25] VITALS: BP_SYST 108
[2018-07-19 15:51] VITALS: BP_SYST 131
[2018-07-19] MEDS: KCL 20 mEq in D5NS 1000 mL 1,000 ML IV SCH (18:53)
[2018-07-19 20:00] VITALS: BP_SYST 106
[2018-07-19] MEDS: QUEtiapine FUMARATE 25 MG TABLET PO SCH (20:33)
[2018-07-19] MEDS: traZODone HCL 50 MG TABLET (DESYREL) PO SCH (20:34)
[2018-07-19] MEDS: DONEPEZIL HCL 5 MG TABLET (ARICEPT) PO SCH (20:34)
[2018-07-19] MEDS: cefTRIAXone 1 GM in D5W 50 ML IV SCH (22:49)
[2018-07-20 00:20] VITALS: BP_SYST 128
[2018-07-20] MEDS: PANTOPRAZOLE SODIUM 40 MG TAB PO SCH (06:07)
[2018-07-20] MEDS: LevALBUTEROL HCL 1.25 MG/0.5 ML *CONC.* VIAL.NEB (XOPENEX CONC.) INH SCH ×3 (07:15→22:17)
[2018-07-20 07:45] VITALS: BP_SYST 119
[2018-07-20] MEDS: DOCUSATE SODIUM 250 MG CAPSULE PO SCH (09:21)
[2018-07-20] MEDS: QUEtiapine FUMARATE 25 MG TABLET PO SCH ×2 (09:21→20:16)
[2018-07-20] MEDS: ENOXAPARIN SODIUM 40 MG/0.4 ML SYRINGE SUBCUT SCH (09:23)
[2018-07-20] MEDS: KCL 20 mEq in D5NS 1000 mL 1,000 ML IV SCH ×2 (10:11→23:56)
[2018-07-20 12:09] VITALS: BP_SYST 131
[2018-07-20 16:02] VITALS: BP_SYST 116
[2018-07-20 19:00] VITALS: BP_SYST 124
[2018-07-20 20:00] VITALS: BP_SYST 124
[2018-07-20] MEDS: DONEPEZIL HCL 5 MG TABLET (ARICEPT) PO SCH (20:15)
[2018-07-20] MEDS: traZODone HCL 50 MG TABLET (DESYREL) PO SCH (20:16)
[2018-07-20] MEDS: cefTRIAXone 1 GM in D5W 50 ML IV SCH (23:54)
[2018-07-21 00:26] VITALS: BP_SYST 145
[2018-07-21] MEDS: PANTOPRAZOLE SODIUM 40 MG TAB PO SCH (06:39)
[2018-07-21 07:39] LABS: ANION GAP 7 (5-15); CALCIUM 8.8 mg/dL (8.4-11.0); CHLORIDE 106 mmol/L (98-107); CREATININE 1.02 mg/dL (0.55-1.30); GLUCOSE 99 mg/dL (70-99); POTASSIUM 3.9 mmol/L (3.5-5.1); SODIUM SERUM 141 mmol/L (136-145); UREA NITROGEN, BLOOD 17 mg/dL (8-21)
[2018-07-21] MEDS: LevALBUTEROL HCL 1.25 MG/0.5 ML *CONC.* VIAL.NEB (XOPENEX CONC.) INH SCH ×3 (07:48→22:45)
[2018-07-21 08:02] LABS: BASOPHILS % (AUTO) 0.6 % (0.0-2.0); EOSINOPHILS # (AUTO) 0.2 K/uL (0.0-0.4); EOSINOPHILS % (AUTO) 3.5 % (0.0-4.0); HEMATOCRIT 37.1 % (36-54); HEMOGLOBIN 12.5 g/dL (14.0-18.0); LYMPHOCYTES # (AUTO) 0.8 K/uL (1.0-5.5); LYMPHOCYTES % (AUTO) 16.4 % (20.5-51.5); MEAN CORPUSCULAR HEMOGLOBIN 30 pg (27-31); MEAN CORPUSCULAR HGB CONC 34 % (32-36); MEAN CORPUSCULAR VOLUME 90 fL (79.0-98.0); MONOCYTES # (AUTO) 0.6 K/uL (0.0-1.0); MONOCYTES % (AUTO) 12.8 % (1.7-9.3); NEUTROPHILS # (AUTO) 3.2 K/uL (1.8-7.7); NEUTROPHILS % (AUTO) 66.7 % (40.0-70.0); PLATELET COUNT (AUTO) 213 K/uL (130-430); RED BLOOD CELL COUNT(AUTO) 4.14 MIL/uL (4.2-6.2); RED CELL DISTRIBUTION WIDTH 13.1 % (9.0-15.0); WHITE BLOOD COUNT (AUTO) 4.8 K/uL (4.8-10.8)
[2018-07-21 08:14] VITALS: BP_SYST 135
[2018-07-21] MEDS: DOCUSATE SODIUM 250 MG CAPSULE PO SCH (09:47)
[2018-07-21] MEDS: QUEtiapine FUMARATE 25 MG TABLET PO SCH ×2 (09:47→22:12)
[2018-07-21] MEDS: ENOXAPARIN SODIUM 40 MG/0.4 ML SYRINGE SUBCUT SCH (09:49)
[2018-07-21 11:26] VITALS: BP_SYST 123
[2018-07-21 15:30] VITALS: BP_SYST 130
[2018-07-21 15:35] VITALS: BP_SYST 130
[2018-07-21 20:00] VITALS: BP_SYST 117
[2018-07-21] MEDS: DONEPEZIL HCL 5 MG TABLET (ARICEPT) PO SCH (22:11)
[2018-07-21] MEDS: KCL 20 mEq in D5NS 1000 mL 1,000 ML IV SCH (22:11)
[2018-07-21] MEDS: traZODone HCL 50 MG TABLET (DESYREL) PO SCH (22:12)
[2018-07-21] MEDS: cefTRIAXone 1 GM in D5W 50 ML IV SCH (23:34)
[2018-07-22 00:07] VITALS: BP_SYST 134
[2018-07-22] MEDS: PANTOPRAZOLE SODIUM 40 MG TAB PO SCH (06:19)
[2018-07-22] MEDS: KCL 20 mEq in D5NS 1000 mL 1,000 ML IV SCH ×2 (06:30→14:48)
[2018-07-22 08:00] VITALS: BP_SYST 134
[2018-07-22] MEDS: LevALBUTEROL HCL 1.25 MG/0.5 ML *CONC.* VIAL.NEB (XOPENEX CONC.) INH SCH ×2 (08:00→16:01)
[2018-07-22] MEDS: DOCUSATE SODIUM 250 MG CAPSULE PO SCH (08:58)
[2018-07-22] MEDS: QUEtiapine FUMARATE 25 MG TABLET PO SCH (08:58)
[2018-07-22] MEDS: ENOXAPARIN SODIUM 40 MG/0.4 ML SYRINGE SUBCUT SCH (08:59)
[2018-07-22 11:30] VITALS: BP_SYST 125
[2018-07-22 15:24] VITALS: BP_SYST 140
[2018-07-22 18:57] VITALS: BP_SYST 137
== END 2018-07-22 19:48 | DRG 193 ==
LOC: SED 19:12 → STU 21:49 → SMU 07-20 11:51
PROVIDERS: ADMIT Family Medicine; ATTEND Family Medicine
DX: J18.9 Pneumonia, unspecified organism (principal); G93.41 Metabolic encephalopathy; N39.0 Urinary tract infection, site not specified; F03.90 Unspecified dementia, unspecified severity, without behavioral disturbance, psychotic disturbance, mood disturbance, and anxiety; N40.0 Benign prostatic hyperplasia without lower urinary tract symptoms; K21.9 Gastro-esophageal reflux disease without esophagitis; Z86.73 Personal history of transient ischemic attack (TIA), and cerebral infarction without residual deficits; Z79.899 Other long term (current) drug therapy
CPT/HCPCS: 36415; 71045; 80048; 80053; 81000-TC; 83605; 83880; 84484; 85025; 85610-TC; 85730-TC; 87040-TC; 87086; 93005; 94640; 94760; 96361; 96365; 96367; 99285; J0696; J1650; J1956; J2543; J7060; J7612